=== PATIENT | female | born 1965 | race Caucasian/White ===

== ENCOUNTER 2024-04-23 07:48 | Day surgery (SDC) | payer OTHER ==
[~2024-04-23] VITALS: Ht 160 cm; Wt 72.6 kg
[2024-04-23] MEDS ORDERED: fentaNYL citrate 0.05 MG/ML VIAL ONE (09:25)
[2024-04-23] MEDS: fentaNYL citrate 0.05 MG/ML VIAL IVP ONE (09:38)
[2024-04-23] MEDS: LIDOCAINE 2% 100 MG/5 ML UJET TP ONE (09:52)
== END 2024-04-23 11:00 | disposition home or self-care (01) ==
LOC: MDS 07:48 → MMU 07:50 → MDS 11:00
PROVIDERS: ATTEND Internal Medicine Gastroenterology
DX: Z12.11 Encounter for screening for malignant neoplasm of colon (principal); Z90.710 Acquired absence of both cervix and uterus; Z98.890 Other specified postprocedural states
CPT/HCPCS: 45378; J3010